=== PATIENT | female | born 1995 | race Caucasian/White ===

== ENCOUNTER → 2023-09-22 15:03 | Outpatient (BNVA) | payer OTHER, SELFPAY | PROVIDERS: PCP Internal Medicine; Visit Provider Orthopaedic Surgery ==

== ENCOUNTER → 2023-11-20 14:08 | Outpatient (BNVA) | payer OTHER, SELFPAY | PROVIDERS: PCP Internal Medicine; Visit Provider Orthopaedic Surgery ==

== ENCOUNTER → 2023-12-05 10:55 | Outpatient (BNVA) | payer OTHER, SELFPAY | PROVIDERS: PCP Internal Medicine; Visit Provider Nurse Practitioner Family ==

== ENCOUNTER → 2023-12-24 09:38 | Outpatient (BNVA) | payer OTHER, SELFPAY | PROVIDERS: PCP Internal Medicine; Visit Provider Student in an Organized Health Care Education/Training Program ==

== ENCOUNTER → 2024-08-24 07:48 | Outpatient (BNVA) | payer OTHER, SELFPAY | PROVIDERS: PCP Internal Medicine; Visit Provider Student in an Organized Health Care Education/Training Program | DX: R53.83 Other fatigue (principal); R76.8 Other specified abnormal immunological findings in serum; E01.0 Iodine-deficiency related diffuse (endemic) goiter | CPT/HCPCS: 99202 ==

== ENCOUNTER → 2024-09-07 11:24 | Outpatient (BNV) | payer OTHER, SELFPAY | PROVIDERS: PCP Internal Medicine; Visit Provider Radiology Diagnostic Radiology | DX: E01.2 Iodine-deficiency related (endemic) goiter, unspecified (principal) | CPT/HCPCS: 76536 ==

== ENCOUNTER 2024-09-27 03:07 | Emergency (ER) | payer OTHER, SELFPAY ==
[2024-09-27 03:26] VITALS: BP 131/84; PULSE 96; RESP 18; TEMP 36.9; O2SAT 96; BMI 25.5
[2024-09-27] MEDS: diphenhydrAMINE HCL 50 MG/ML VIAL IM (03:50)
[2024-09-27] MEDS: Haloperidol Lactate 5 MG/ML VIAL IM (03:50)
--- NOTE | 2024-09-27 03:50 | PC.NURSE ---
patient biba with PD d.t having a domestic argument with siginficant other. patient extremely intoxicated, patient yelling and swearing at staff reporting we are holding her hostage. after multiple attempted to call a sober ride patient was educated on having to stay for safety concerns. Patient continued swearing trying to get out of stretcher to leave, aggressive with staff. patient medicated and physically restrained at this time
--- NOTE | 2024-09-27 03:53 | ED.ALCOHOL ---
HPI - Alcohol General Chief Complaint: ETOH/Substance Use Stated Complaint: ETOH/ domestic Agrument w/ bf, retrained&combative Time Seen by Provider: 09/27/24 03:48 Source: patient and EMS Mode of arrival: EMS Limitations: other ( Intoxicated) History of Present Illness ED Provider: Dr. Stacy Bob HPI narrative: patient comes to the emergency room. According to EMS, the partner of the patient claims because they were having a verbal altercation and the patient was too intoxicated. Police department was not seen, brought the patient to the emergency room. Patient very intoxicated, loud, belligerent, uncooperative, unable to give history. Related Data Home Medications ?Medication ?Instructions ?Recorded ?Confirmed ibuprofen 600 mg tablet 600 mg PO TID 09/03/23 08/24/24 Previous Rx's ?Medication ?Instructions ?Recorded lidocaine 5 % topical patch 1 patch topical DAILY #15 ea 08/08/24 (Lidoderm) Allergies Allergy/AdvReac Type Severity Reaction Status Date / Time doxycycline Allergy Unknown Verified 09/27/24 03:28 Review of Systems Review of Systems: Yes Other [facility] Past Medical History Medical History Thyromegaly Thyroglobulin antibody positive History of substance use Dizziness Headache Right hand pain Vertigo Anxiety Surgical History (Updated 09/21/24 @ 13:44 by Maryanne Gonzáles) H/O wisdom tooth extraction Family History Family History (System 09/21/24 @ 13:44 by Maryanne Gonzáles) Mother No problems noted. Father No problems noted. 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 Intoxicated, screaming , belligerent Eyes: Pupils equal, round and reactive to light. ENT: Pharynx normal. Neck: Normal inspection. Neck supple. No lymph nodes noted. No crepitus CVS: Normal heart rate and rhythm. Pulses normal. Normal S1 and S2 Respiratory: No respiratory distress. Breath sounds normal. No Wheezing. No rales Abdomen: Soft and nontender. No rigidity. No distention. Skin: Skin warm and dry. Normal skin color. Normal skin turgor. Extremities: No lower extremity edema. No Lacerations. No Rash Neuro: Moving all extremities. No slurred speech. CN 2 through 12 grossly intact Psych: intoxicated, uncooperative, belligerent, yelling Course Course Course Narrative: patient's nurse, PD, EMS and our security guards dry deescalating the patient. However, patient kept getting more agitated. Patient tried contacting a friend to pick her up. However, her friend hung up on her patient to admitting under phone calls but not a picked up the phone. Then, patient is becoming more loud, aggressive. Patient had to be physically and chemically restrained. Patient received a dose of IM diphenhydramine, Haldol and lorazepam Medical Decision Making Medical Decision Making MDM Narrative: when patient wakes up, we will assess for SI, HI which she already Denied,but she is intoxicated. Differential Diagnosis Differential Diagnoses: The differential diagnosis associated with the presentation includes ( alcohol intoxication, polysubstance abuse. Anxiety, depression) Admission/Observation Consideration of admission/observation: Escalation of care including admission/observation considered ( patient is under physician observation waiting to become more sober, awake and alert x3 to be discharged) Critical Care Time Critical Care Time Critical Care Time: Yes Total Critical Care Time: 45 Attestation: I have personally provided critical care time. Time includes review of lab data, radiology results, discussion with consultants, and monitoring for potential decompensation. Intervention performed as documented. Discharge Plan Discharge Clinical Impression: Alcohol intoxication Patient Disposition: Still a Patient Prescriptions: No Action lidocaine [Lidoderm] 5 % adhesive patch,medicated 1 patch topical DAILY Qty: 15 0RF Rx Instructions: leave on most painful area for up to 12 hrs ibuprofen 600 mg tablet 600 mg PO TID Print Language: Czech
[2024-09-27] MEDS: LORazepam 2 MG/ML VIAL IM (04:11)
--- NOTE | 2024-09-27 05:45 | PC.NURSE ---
while in the hallway patient coughing up mucus, did not seem to be able to clear airway. patient moved to room 1 suctioned and placed on monitor O2 sats 97% and able to maintain airway
[2024-09-27 06:06] VITALS: BP 114/77; PULSE 97; RESP 19; O2SAT 97
[2024-09-27 10:21] VITALS: BP 117/79; PULSE 72; RESP 16; TEMP 36.7; O2SAT 100
--- NOTE | 2024-09-27 10:21 | PC.NURSE ---
patient awoken from sleep argumentative and wanting to leave and go home. spouse called and attempted to get him to pickup but he is working til noon. Patient mother attempted to be called and voicemail, no message left at this time. patient given own phone back and is calling for ride from sister. patient ambulates with steady gait to bathroom. made aware. d/c pending.
[2024-09-27 11:32] VITALS: BP 117/79; PULSE 72; RESP 16; TEMP 36.7; O2SAT 100
== END 2024-09-27 11:27 | disposition home or self-care (01) ==
PROVIDERS: Emergency Provider Emergency Medicine; PCP Internal Medicine
DX: F10.129 Alcohol abuse with intoxication, unspecified (principal); Y90.9 Presence of alcohol in blood, level not specified; Z79.899 Other long term (current) drug therapy
CPT/HCPCS: 96372; 99284; 99285; J1200; J1630; J2060

== ENCOUNTER 2024-10-05 08:39 | Outpatient (AMB) | payer OTHER, SELFPAY ==
[2024-10-05 08:42] VITALS: BP 112/68; PULSE 93; O2SAT 96; BMI 29.2
--- NOTE | 2024-10-05 08:42 | A.OFFVIS_ITS ---
Vital Signs 10/05/24 08:42 Height 5 ft 1 in Weight 154 lb 5.177 oz BMI 29.2 BP 112/68 Blood Pressure Location Rt brachial Position Sitting Pulse 93 Pulse Source Pulse Oximeter Pulse Oximetry (%) 96 Oxygen Delivery Method Room Air Intake Visit Reasons: Thyroglobulin antibody positive Intake Note: Patient present today for a follow-up on Thyroglobulin Antibody Positive Labs: [facility] [place] [facility] Required: No Accompanied by: Self / Same As Patient Allergies doxycycline Allergy (Verified 10/05/24 08:43) Unknown HPI Comments Details: 28-year-old female here today for follow up of elevated thyroglobulin levels. HPI from prior visit Labs from 07/21/2024 showed normal TSH of 1.12. Thyroglobulin antibody only mildly elevated at 7, TPO antibodies normal at 1. Reports fatigue. Weight gain 30 lbs over a year. Chronic constipation. Reports eczematous patches on skin. No palpitations, does have some anxiety. She does have tremors. LMP: a week and half ago. Periods every month but varies in flow sometimes. Patient currently denies heat or cold intolerance, changes in appearance of eyes or vision changes, tremors, increased diaphoresis or dry skin. ? Patient denies any difficulty swallowing, pain on swallowing or voice changes or difficulty breathing. However she does feel anterior pressure on her neck sometimes when she is lying down. Patient denies any history of childhood neck radiation. Denies having ever used lithium, amiodarone or biotin supplements. Patient denies any family history of thyroid cancer. Grandmother had Graves disease. 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 Gets 8 hours of sleep. Interval history Reports she is feeling much better . no more tiredness 09/07/24: normal thyroid function tests, Us thyroid is normal no nodules Physical exam General: sitting comfortably in no acute distress HEENT: normocephalic/atraumatic, EOM intact, moist oral mucosa Neck: supple, thyroid gland is mildly more prominent Cardiac: normal heart sounds Pulm: normal breath sounds B/L, no added breath sounds Abd: not distended, no tenderness Extremities: no edema, no signs of myxedema, mild tremor noted Laboratory Tests 11/13/23 07/21/24 10:46 16:42 TSH 2.08 1.12 Thyroglobulin Antibody 7 H Thyroid Peroxidase Ab 1 Laboratory Tests 07/21/24 09/07/24 16:42 11:33 TSH 1.12 2.05 Free T4 0.96 Total T3 130 US THYROID 09/07/24 CLINICAL INFORMATION: Iodine deficiency related goiter (endemic). COMPARISON: None available. TECHNIQUE: Linear transducer grayscale and color Doppler examination with attention to the region of the thyroid. FINDINGS: SIZE: Measurements of the thyroid lobes and nodules are given in sagittal, anteroposterior and transverse dimensions respectively. Right Thyroid Lobe: 4.6 x 1.2 x 1.2 cm, volume 3.3 mL. Parenchyma: The gland echotexture is normal. Thyroid vascularity is increased. Left Thyroid Lobe: 4.1 x 0.9 x 1.5 cm, volume 3.0 mL. Parenchyma: The gland echotexture is normal. Thyroid vascularity is increased.. Isthmus: 0.27 cm in maximum AP dimension. Estimated total number of nodules greater than or equal to 1 cm: 0/none. Penology Professor nodules are described as follows: NODES: No lymphadenopathy is seen in the tissue surrounding the thyroid gland. US/US thyroid IMPRESSION: ACR TI-RADS 0 PFSH Medical History Thyromegaly Thyroglobulin antibody positive History of substance use Dizziness Headache Right hand pain Vertigo Anxiety Surgical History H/O wisdom tooth extraction Family History Mother No problems noted. Father No problems noted. 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 Cognitive needs: No Hearing needs: No Vision needs: Yes Physical Exam Vital Signs: Last Vital Signs Pulse 93 10/05/24 08:42 BP 112/68 10/05/24 08:42 Pulse Ox 96 10/05/24 08:42 Oxygen Delivery Method Room Air 10/05/24 08:42 BMI result Body Mass Index 29.2 Assessment & Plan Assessment & Plan (1) Thyroglobulin antibody positive: Code(s): R76.8 - Other specified abnormal immunological findings in serum Category: Medical Plan: 28-year-old female with no family history of thyroid cancer with no personal history of head or neck radiation who is here today for for follow up for positive thyroglobulin antibody with normal thyroid function from July 2024. Labs from September 2024 showed normal thyroid function tests as well as normal t hyroid ultrasound. She does not have any nodules. At this point she does not need any follow up with endocrine. She is overall feeling much better and her nonspecific symptoms of fatigue have also resolved. She can be discharged back to her primary care physician. Plan See above Coding Level of Care Code Est Pt Level 3 (79669) Diagnoses Thyroglobulin antibody positive R76.8
== END 2024-10-05 08:57 | disposition home or self-care (01) ==
LOC: HO.ENCR 08:40
PROVIDERS: PCP Internal Medicine; Visit Provider Student in an Organized Health Care Education/Training Program
DX: R76.8 Other specified abnormal immunological findings in serum (principal)
CPT/HCPCS: 99213

== ENCOUNTER → 2024-10-05 08:39 | Outpatient (BNVA) | payer OTHER, SELFPAY | PROVIDERS: PCP Internal Medicine; Visit Provider Student in an Organized Health Care Education/Training Program | DX: R76.8 Other specified abnormal immunological findings in serum (principal) | CPT/HCPCS: 99212 ==

== ENCOUNTER 2024-12-31 05:57 | Emergency (ER) | payer OTHER, SELFPAY ==
--- NOTE | 2024-12-31 06:08 | ED_ITS ---
HPI - Alcohol General Chief Complaint: ETOH/Substance Use Stated Complaint: ETOH Time Seen by Provider: 12/31/24 06:02 Source: patient Mode of arrival: ambulatory Limitations: no limitations History of Present Illness ED Provider: Dr. Stacy Bob HPI narrative: Patient comes to the emergency room accompanied by [place] fire department and police department. Seems that patient drank a large amount of alcohol and then got into an argument with her significant other. Seems that they were in a car, patient's partner how to puller out because the discussion was escalating. When PD arrived, patient was very belligerent and therefore she was brought to emergency room. Patient denies SI or HI. Related Data Home Medications ?Medication ?Instructions ?Recorded ?Confirmed ibuprofen 600 mg tablet 600 mg PO TID PRN 10/05/24 lidocaine 5 % topical patch 1 patch topical DAILY PRN 10/05/24 (Lidoderm) Allergies Allergy/AdvReac Type Severity Reaction Status Date / Time doxycycline Allergy Unknown Verified 12/31/24 06:13 Review of Systems Review of Systems: Constitutional : No Weight loss, No Fever, No Chills, No Night Sweats, No Fatigue, No Malaise ENT/Mouth : No Hearing loss, No Ear Pain, No Nasal Congestion, No Sinus Pain, No Hoarseness, No sore throat, No Rhinorrhea, No Swallowing Difficulty Eyes: No Eye Pain, No Swelling, No Redness, No Foreign Body, No Discharge, No Vision Changes Cardiovascular : No Chest Pain, No SOB, No Dyspnea on Exertion, No Orthopnea, No Edema, No Palpitations Respiratory : No Cough, No Sputum, No Wheezing, No Smoke Exposure, No Dyspnea Gastrointestinal : No Nausea, No Vomiting, No Diarrhea, No Constipation, No abdominal Pain, No Hematochezia, No Melena Genitourinary : no irregular bleeding, No Dysuria, No Urinary Frequency, No Hematuria, No Urinary Incontinence, No Urgency, No Flank Pain, No Urinary Flow Changes, No Hesitancy Musculoskeletal : No joint pain, No Myalgias, No Joint Swelling Skin : No Skin Lesions, No rash Neuro : No Weakness, No Numbness, No Paresthesias, No Loss of Consciousness, No Dizziness, No Headache Psych : No Anxiety/Panic, No Depression, No SI/HI/AH/VH, admits to alcohol intoxication Heme/Lymph: No Bruising, No Bleeding,No Lymphadenopathy Endocrine : No Polyuria, No Polydipsia, No Temperature Intolerance [facility] Past Medical History Medical History Thyromegaly Thyroglobulin antibody positive History of substance use Dizziness Headache Right hand pain Vertigo Anxiety Surgical History H/O wisdom tooth extraction Family History Family History Mother No problems noted. Father No problems noted. 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 Oriented X3. Patient is intoxicated but redirectable Eyes: Pupils equal, round and reactive to light. ENT: Pharynx normal. Neck: Normal inspection. Neck supple. No lymph nodes noted. No crepitus CVS: Normal heart rate and rhythm. Pulses normal. Normal S1 and S2 Respiratory: No respiratory distress. Breath sounds normal. No Wheezing. No rales Abdomen: Soft and nontender. No rigidity. No distention. Skin: Skin warm and dry. Normal skin color. Normal skin turgor. Extremities: No lower extremity edema. No Lacerations. No Rash Neuro: Oriented X 3. No motor deficit. No sensory deficit. Moving all extremities. No slurred speech. CN 2 through 12 grossly intact Psych: calm, cooperative, intoxicated Course Course Course Narrative: Patient was brought to emergency room because she was belligerent and intoxicated. Patient denies SI or HI. Denies any injuries or any falls. Reevaluation(s) Reevaluation #1: Time: 08:08 Date: 12/31/24 Provider: Michael Douglas MD Physician observation ended at 0800. The patient is a 29-year-old female who had presented to the emergency room after calling 911. She had apparently been in a car with someone else. She was intoxicated and became argumentative with the electric truck driver of the car. She was asked to leave the car. After leaving the car she called 911 and was brought to the hospital. Here the patient says that she was feeling upset but not suicidal. She describes herself as someone who has been clean from heroin for 6 years but still occasionally drinks alcohol. She has a boyfriend. She has 2 small children. She says that she lives with her boyfriend and the 2 small children at a house in [place]. She works at [employer]. she says that occasionally she drinks a lot when she is feeling under stress but she does not consider herself an alcoholic. She does not want to speak to the recovery team. She simply wants to be discharged. Clinically the patient was awake and alert but seemed intoxicated. She did not seem in acute distress. She was held in the emergency room until her boyfriend came and picked her up. She was then discharged. She did not wish to have any testing done or any other services provided.. Medical Decision Making Medical Decision Making MDM Narrative: Patient is waiting for a sober ride to pick her up. Patient denies any falls or injuries. At this time, imaging is not indicated. When the patient becomes sober or she has a sober ride to pick her up, patient may be discharged. I was informed by registration that the patient is refusing to give any information because she does not want us to bill her insurance Differential Diagnosis Differential Diagnoses: The differential diagnosis associated with the presentation includes (Alcohol intoxication, polysubstance abuse) Discharge Plan Discharge Clinical Impression: Alcohol intoxication Patient Disposition: Home, Self-Care Instructions: Alcohol Intoxication (ED) Additional Instructions: Please follow-up with your primary care physician tomorrow. If you have any worsening or new symptoms, please return to the emergency room or call 911 Prescriptions: No Action ibuprofen 600 mg tablet 600 mg PO TID PRN lidocaine [Lidoderm] 5 % adhesive patch,medicated 1 patch topical DAILY PRN Rx Instructions: leave on most painful area for up to 12 hrs Referrals: Aby Serrano MD [Primary Care Provider, Internal Medicine] Print Language: Yakut
[2024-12-31 06:13] VITALS: BP 119/72; PULSE 120; PULSE 99; RESP 19; TEMP 36.8; O2SAT 98; BMI 27.4
--- NOTE | 2024-12-31 07:09 | PC.NURSE ---
assumed care of patient at 0645, patient belligerent, attempting to elope from unit, appears intoxicated. patient not changed over by previous shift RN. security at bedside. patient informed if she has ride home then she can leave. patient continues to scream this RN is a cunt for not bringing patient a water. This RN provided patient with water. This RN spoke with patients ride home Vince. written by Aditi SAENZ
--- NOTE | 2024-12-31 07:09 | PC.NURSE ---
assumed care of patient at 0645, patient beligerant, attempting to elope from unit, appears intoxicated. patient not changed over by previous shift RN. security at bedside. patient informed if she has ride home then she can leave. patient continues to scream this RN is a cunt for not bringing patient a water. This RN provided patient with water. This RN spoke with patients ride home
--- NOTE | 2024-12-31 07:24 | PC.NURSE ---
patient brought pitcher of water, dumped it out. requested ED provider to do blood work for her BAL level, ED provider ordered then patient refused.
--- NOTE | 2024-12-31 08:05 | PC.NURSE ---
Dr davis at bedside, patient ride om his way
--- NOTE | 2024-12-31 08:06 | PC.NURSE ---
patient sober jey Clarke picked patient up, given dc papers
== END 2024-12-31 08:09 | disposition home or self-care (01) ==
PROVIDERS: Emergency Provider Emergency Medicine; PCP Internal Medicine
DX: F10.920 Alcohol use, unspecified with intoxication, uncomplicated (principal); Y90.9 Presence of alcohol in blood, level not specified; R45.1 Restlessness and agitation
CPT/HCPCS: 99284

== ENCOUNTER 2025-01-06 03:14 | Emergency (ER) | payer OTHER, SELFPAY ==
--- NOTE | 2025-01-06 03:53 | ED_ITS ---
HPI - Alcohol General Stated Complaint: SI statements ETOH section 12 Time Seen by Provider: 01/06/25 03:53 Source: patient and EMS Mode of arrival: EMS Limitations: other (upset and intoxicated) History of Present Illness ED Provider: KATHERYN OHARA narrative: 29 yo female with PMH of ETOH use with visits to the ED for agitation, opiate use here with c/o calling state transit police officer making statements on the recorded line I don't want to be here anymore she was sectioned 12 by PD and recants and states she never said any of that. The section 12 just states self harm. When talking to the patient she admits to drinking denies SI no prior attempts has a therapist and prescriber. The patient states she called to report a drug dealer in her neighborhood and didn't feel the police were helping so she made an off hand comment I shouldn't be here anymore if you're not going to help. Her step mom is here and is an tax attorney she has already called the police - the family has no concerns for SI but they are concerned for her ETOH use and are going to work out a plan to get her some help. The patient and step mom contract for safety and the step mom is going to take her home. The patient is future oriented and states this was all blown out of proportion. Last drink: Hours (ago) Chronic alcohol use: Yes Previous visits for alcohol intoxication: Yes Recent trauma: No Associated symptoms: denies other symptoms Treatments prior to arrival: none Related Data Home Medications ?Medication ?Instructions ?Recorded ?Confirmed ibuprofen 600 mg tablet 600 mg PO TID PRN 10/05/24 lidocaine 5 % topical patch 1 patch topical DAILY PRN 10/05/24 (Lidoderm) Allergies Allergy/AdvReac Type Severity Reaction Status Date / Time doxycycline Allergy Unknown Verified 01/06/25 04:02 Review of Systems Review of Systems: Constitutional : No Fever, No Chills ENT/Mouth : No Ear Pain, No Nasal Congestion, No sore throat Eyes: No Eye Pain, No Swelling, No Redness Cardiovascular : No Chest Pain, No SOB Respiratory : No Cough, No Sputum, No Dyspnea Gastrointestinal : No Nausea, No Vomiting, No Diarrhea, No Hematochezia, No Melena Genitourinary : No Dysuria, No Urinary Frequency, No Hematuria Musculoskeletal : No Myalgias Skin : No Skin Lesions, No rash Neuro : No Weakness, No Numbness, No Paresthesias, No Dizziness, No Headache Psych : no Anxiety, no Depression, no SI/HI All other systems reviewed and are negative [facility] Past Medical History Attestation statement: The following information was validated with the patient. Source: old records reviewed Medical History Thyromegaly Thyroglobulin antibody positive History of substance use Dizziness Headache Right hand pain Vertigo Anxiety Surgical History H/O wisdom tooth extraction Family History Family History Mother No problems noted. Father No problems noted. 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 Oriented X3. No acute distress. appears slightly intoxicated but no ataxia and she is oriented, initially upset but calmed down after police left. Eyes: Pupils equal, round and reactive to light. ENT: Pharynx normal. Neck: Normal inspection. Neck supple. CVS: Pulses normal. Respiratory: No respiratory distress. Abdomen: atraumatic Skin: Skin warm and dry. Normal skin color. Extremities: No lower extremity edema. Neuro: Oriented X 3. No motor deficit. No sensory deficit. CN2-12 intact Medical Decision Making Medical Decision Making MDM Narrative: 29 yo female with PMH of ETOH use with visits to the ED for agitation, opiate use here with c/o making statements to state police after drinking and feeling f rustrated about she shouldn't even be here if they aren't going to help. She states she is no SI she has future plans and would not hurt herself due to her children. She has no prior SI attempts per her and family. Family is here and they want to take her home. Step mom is an tax attorney and states she feels safe taking her home and Dot will stay with her. Differential Diagnosis Differential Diagnoses: The differential diagnosis associated with the presentation includes ETOH use disorder, PTSD Admission/Observation Consideration of admission/observation: Escalation of care including admission/observation considered I do not think patient has SI and family is here without any concerns and states this is ETOH related - patient is going to stay with her step mom and if there are any changes or concerns she contracts for safety and both agree to call 911. Independent Historian Clinical information obtained from an independent historian. History obtained from or confirmed by: EMS and Other (step mom) External Record Review External record reviewed: Outpatient record Discharge Plan Discharge Clinical Impression: Alcohol intoxication Qualifiers: Complication of substance-induced condition: uncomplicated Qualified Code(s): F10.920 - Alcohol use, unspecified with intoxication, uncomplicated Patient Disposition: Home, Self-Care Instructions: Alcohol Intoxication (ED) Additional Instructions: Alcohol use disorder You were seen in the Emergency Department today for treatment of alcohol use disorder.? You may have been given medications to help with your withdrawal symptoms.? Please do not drink alcohol with them. This is very dangerous and can cause respiratory depression or other adverse reactions depending on the medication. If you would like to cut down or stop your alcohol use please consider calling our outpatient Addiction Treatment office:? [facility] (M-F [id number]) [address] [place] [address] ? You have also been given a list of treatment providers in the area that can assist as well.? If you experience seizures, vomiting blood, black stools, falls, severe headache, chest pain, fevers, trouble breathing, hallucinations or any other concerns you need to call 911 or seek immediate care. Please stay hydrated. Prescriptions: No Action ibuprofen 600 mg tablet 600 mg PO TID PRN lidocaine [Lidoderm] 5 % adhesive patch,medicated 1 patch topical DAILY PRN Rx Instructions: leave on most painful area for up to 12 hrs Stand Alone Forms: Work/School Release Print Language: Congolese
[2025-01-06 03:59] VITALS: PULSE 134; O2SAT 99; BMI 25.7
[2025-01-06 04:20] VITALS: BP 115/78; PULSE 104; RESP 20; TEMP 36.8; O2SAT 96
--- NOTE | 2025-01-06 04:20 | PC.NURSE ---
pts step mom La here sating pt does not have any history of self harm, regularly sees psychiatrist. states someone will be with patient and can call 911 at any moment of concern for suicidal intent. step mom is willing to take pt home and spoke with MD Park and verbalizes understanding d/c education.
[2025-01-06 04:30] VITALS: BP 115/78; PULSE 104; RESP 20; TEMP 36.8; O2SAT 96
== END 2025-01-06 04:23 | disposition home or self-care (01) ==
LOC: HO.ED 04:30
PROVIDERS: Emergency Provider Emergency Medicine
DX: F10.920 Alcohol use, unspecified with intoxication, uncomplicated (principal); R45.851 Suicidal ideations; Z79.899 Other long term (current) drug therapy
CPT/HCPCS: 99283

== ENCOUNTER 2025-02-11 12:06 | Outpatient (AMB) | payer OTHER, SELFPAY ==
--- OUTSIDE RECORDS SUMMARY | 2025-02-11 12:07 | XMS_ITS ---
Author Name [facility] Organization Unknown Care Team Organization Name Specialty Phone Email Start Date End Da te [facility] Mariana Faulkner [facility] 03/13/2023 024 [facility] Rafi Lyons Primary [facility] 05/14/20222023
[2025-02-11 12:42] VITALS: BP 100/76; PULSE 92; TEMP 37.1; O2SAT 97; BMI 27.3
--- NOTE | 2025-02-11 12:42 | MHC.OFFWIV ---
Intake Vital Signs 02/11/25 12:42 Height 5 ft 4 in Weight 159 lb 4 oz BMI 27.3 BP 100/76 Blood Pressure Location Lt brachial Position Sitting Pulse 92 Pulse Source Pulse Oximeter Temp 98.7 F Temp Source Oral Pulse Oximetry (%) 97 Oxygen Delivery Method Room Air Intake Visit Reasons: EP Diarrhea for 3 days, stomach bug Patient Tobacco Use Status: Never used Tobacco Operations Research Manager Required: No Is last menstrual period known: Yes Last menstrual period: 02/02/25 Post menopausal: No Patient : No Allergies doxycycline Allergy (Verified 02/11/25 12:48) Unknown Do you need a note to return to daycare/school/sports/work: Yes HPI EP Diarrhea for 3 days, stomach bug HPI Details This is a 29-year-old female patient presents to the walk-in clinic today with a 3 day history of a GI illness. She states that 3 days ago, she developed vomiting which subsided after about 1 day. She then began having diarrhea which was frequent yesterday, however today she has only had one episode. She denies any abdominal pain, fever, or urinary complaints. Denies any dizziness. Has been tolerating some bland foods and water. Reports her daughter had a similar illness earlier this week and is recovered. 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 [facility] Medical History Thyromegaly Thyroglobulin antibody positive History of substance use Dizziness Headache Right hand pain Vertigo Anxiety Surgical History H/O wisdom tooth extraction Family History Mother No problems noted. Father No problems noted. 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 Cognitive needs: No Hearing needs: No Vision needs: Yes Female Reproductive History Menstrual Date of last menstrual period: 02/02/25 Review of Systems Const All systems reviewed & are unremarkable except as noted in HPI and below Physical Exam Vital Signs: Last Vital Signs Temp 98.7 F 02/11/25 12:42 Pulse 92 02/11/25 12:42 BP 100/76 02/11/25 12:42 Pulse Ox 97 02/11/25 12:42 Oxygen Delivery Method Room Air 02/11/25 12:42 BMI result Body Mass Index 27.3 Const General: cooperative, healthy appearing and no acute distress HEENT Head: Yes normal to inspection Resp Effort & Inspection: normal respiratory effort Auscultation: clear to auscultation bilaterally Cardio Rate: regular rate Rhythm: regular rhythm GI Other: soft, nontender Skin General skin exam: no rashes or lesions noted Extrem General: Yes capillary refill normal and Yes no clubbing, cyanosis or edema Psych Appearance: grossly normal Mental Status: mental status grossly normal Speech and movement: Normal speech and movement present Assessment & Plan Assessment & Plan (1) Viral gastroenteritis: Code(s): A08.4 - Viral intestinal infection, unspecified Plan: Patient seems to be recovering from a viral enteritis. She has had one episode of diarrhea today. No further vomiting. We discussed starting to eat bland foods and advancing diet as tolerated. Encouraged adequate hydration and rest. I provided her with a work note and we discussed returning to the clinic if she does not continue to improve with time and conservative measures. She verbalizes understanding and agrees to plan. Coding Level of Care Code Est Pt Level 4 (68985) Diagnoses Viral gastroenteritis A08.4
== END 2025-02-11 13:19 | disposition home or self-care (01) ==
PROVIDERS: Visit Provider Nurse Practitioner Family
DX: A08.4 Viral intestinal infection, unspecified (principal)

== ENCOUNTER → 2025-02-11 12:06 | Outpatient (BNVA) | payer OTHER, SELFPAY | DX: A08.4 Viral intestinal infection, unspecified (principal); R19.7 Diarrhea, unspecified | CPT/HCPCS: 99212 ==

== ENCOUNTER 2025-04-07 09:53 | Outpatient (AMB) | payer OTHER, SELFPAY ==
[2025-04-07 09:56] VITALS: BP 112/80; PULSE 86; RESP 18; TEMP 36.2; O2SAT 98; BMI 28.2
--- NOTE | 2025-04-07 09:56 | MHC.PC.OV ---
Vital Signs 04/07/25 09:56 Height 5 ft 4 in Weight 164 lb 2 oz BMI 28.2 BP 112/80 Blood Pressure Location Lt brachial Position Sitting Respiration 18 Pulse 86 Pulse Source Pulse Oximeter Temp 97.1 F Temp Source Temporal Artery Scan Pulse Oximetry (%) 98 Oxygen Delivery Method Room Air Intake Visit Reasons: Nausea,Vomitting,body aches Biomass Plant Technician Required: No Accompanied by: Self / Same As Patient Allergies doxycycline Allergy (Verified 04/07/25 09:57) Unknown Medication List - Last Reconciled 04/07/25 by Rigo Teixeira MD hydroxyzine pamoate 25 mg PO BID PRN sertraline 100 mg PO DAILY Tobacco use date assessed: 04/07/25 Dental Screening Dental Screen Date: 04/07/25 Did you have a dental visit in the last 12 months?: No Did you have a dental problem in the last 6 months where you did not have access to dental care?: No Was dental information given to patient?: No HPI HPI Comments History of Present Illness Details The patient is a 29-year-old female presenting with nausea, vomiting, diarrhea, and abdominal pain. Symptoms began on Friday with severe nausea and vomiting, which have improved, though nausea remains. She describes abdominal pain with bubbling sensations, diarrhea, and headache. The patient had a fever that responded to Tylenol, but body aches persisted. She has not taken medication for nausea or diarrhea, only Tylenol for fever and headache. The patient has a history of prolonged QT interval, identified on an EKG in July, with a QT interval of approximately 600 ms. She understands that certain medications could worsen this condition, posing cardiac risks. [facility] Medical History Thyromegaly Thyroglobulin antibody positive History of substance use Dizziness Headache Right hand pain Vertigo Anxiety Surgical History H/O wisdom tooth extraction Family History Mother No problems noted. Father No problems noted. 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 Hever Sommers, Nancy Carranza, Tesfaye Johnson and colleagues, with an educational katerin from [employer]. Review of Systems Const Details: Positives besides what was mentioned in HPI are in BOLD Constitutional: No Weight Change, No Fever, No Chills, No Night Sweats, No Fatigue, No Malaise ENT/Mouth: No Hearing Changes, No Ear Pain, No Nasal Congestion, No Sinus Pain, No Hoarseness, No sore throat, No Rhinorrhea, No Swallowing Difficulty Eyes: No Eye Pain, No Swelling, No Redness, No Foreign Body, No Discharge, No Vision Changes Cardiovascular: No Chest Pain, No SOB, No PND, No Dyspnea on Exertion, No Orthopnea, No Claudication, No Edema, No Palpitations Respiratory: No Cough, No Sputum, No Wheezing, No Smoke Exposure, No Dyspnea Gastrointestinal: No Nausea, No Vomiting, No Diarrhea, No Constipation, No Pain, No Heartburn, No Anorexia, No Dysphagia, No Hematochezia, No Melena, No Flatulence, No Jaundice Genitourinary: No Dysmenorrhea, No DUB, No Dyspareunia, No Dysuria, No Urinary Frequency, No Hematuria, No Urinary Incontinence, No Urgency, No Flank Pain, No Urinary Flow Changes, No Hesitancy Musculoskeletal: No Arthralgias, No Myalgias, No Joint Swelling, No Joint Stiffness, No Back Pain, No Neck Pain, No Injury History Skin: No Skin Lesions, No Pruritis, No Hair Changes, No Breast/Skin Changes, No Nipple Discharge Neuro: No Weakness, No Numbness, No Paresthesias, No Loss of Consciousness, No Syncope, No Dizziness, No Headache, No Coordination Changes, No Recent Falls Psych: No Anxiety/Panic, No Depression, No Insomnia, No Personality Changes, No Delusions, No Rumination, No SI/HI/AH/VH, No Social Issues, No Memory Changes, No Violence/Abuse Hx., No Eating Concerns Heme/Lymph: No Bruising, No Bleeding, No Transfusions History, No Lymphadenopathy Endocrine: No Polyuria, No Polydipsia, No Temperature Intolerance Physical exam (Primary Care) Vital Signs: Last Vital Signs Temp 97.1 F 04/07/25 09:56 Pulse 86 04/07/25 09:56 Resp 18 04/07/25 09:56 BP 112/80 04/07/25 09:56 Pulse Ox 98 04/07/25 09:56 Oxygen Delivery Method Room Air 04/07/25 09:56 BMI result Body Mass Index 28.2 Tobacco/Smoking Status: Tobacco use Status Tobacco use date assessed 04/07/25 04/07/25 10:05 Patient Tobacco Use Status Never used Tobacco 04/07/25 10:05 e-Cigarette/Vaping Use Currently Using 04/07/25 10:05 Thrive Assessment: Date of Thrive Assessment Date Thrive assessed 07/23/23 04/07/25 10:05 Const Other: Pertinent findings are in BOLD GENERAL APPEARANCE NAD, activity normal for age, well developed/ well nourished, no cyanosis, pallor, or diaphoresis. EYES lids/conjunctiva normal. EARS/NOSE/THROAT Mucous membranes moist, nares normal, lips/teeth normal uvula midline without oral pharyngeal erythema, exudate or swelling TMs normal bilaterally. No lymphangitis/lymphedema. HEAD/NECK normocephalic atraumatic, no facial trauma, neck is supple. RESPIRATORY respiratory effort normal, speaks in full sentences, no tripod position, no accessory muscle use. Lungs clear to auscultation without rhonchi, wheezes, rales CARDIAC Regular rate and rhythm, no edema. ABDOMINAL Soft, ND/NT. No evidence of fluid wave. No pulsatile masses on exam, rebound tenderness, Silveira sign or pain over Mcburney's point. MUSCLES/EXTREMITIES No abnormal range of motion, no swelling. SKIN Warm, pink and dry. No rashes, dermatoses, petechiae or lesions. NEUROLOGICAL Speech is clear and appropriate. Normal level of consciousness. Gait and coordination are normal. 5/5 strength in all extremities. PSYCH Normal mood and affect. Judgement/competence is appropriate Coding Level of Care Code Est Pt Level 4 (41571) Diagnoses Nausea R11.0 Diarrhea R19.7 QT prolongation R94.31 Assessment & Plan Assessment & Plan (1) Nausea: Code(s): R11.0 - Nausea Category: Medical Plan: - Supportive care with hydration using Pedialyte and rest advised. No medications prescribed as patient have Hx of prolonged QT. (2) Diarrhea: Code(s): R19.7 - Diarrhea, unspecified Category: Medical Plan: - Supportive care with hydration using Pedialyte and rest advised. (3) QT prolongation: Code(s): R94.31 - Abnormal electrocardiogram [ECG] [EKG] Category: Medical Plan: - Avoid QT prolonging medications. Had QTc in the 600s on EKG from July/2024. - Advised patient to let her providers know about prolonged QTc. Plan During the visit, I discussed the patient's symptoms of nausea, vomiting, diarrhea, and abdominal pain, which are consistent with viral gastroenteritis. I advised supportive care, including hydration and rest, and explained the importance of avoiding medications that could exacerbate her prolonged QT interval. We reviewed the potential cardiac risks associated with QT prolongation and the need for careful medication management.
--- OUTSIDE RECORDS SUMMARY | 2025-04-07 11:01 | XMS_ITS | Clinical Summary ---
Author Organization [facility] Address [address] [place] [address] Phone Care Team Providers Care Rehabilitation Services Coordinator Name Role Phone Jasbir Darnell MD Primary Care Provider [phone] Allergies No known active allergies Medications No known medications Social History Tobacco Use Types Packs/Day Years Used Date Smoking Tobacco: Never Assessed Education Answer Date Recorded Are you interested in more education? Not on howard e 11/02/2022 Are you concerned about learning? Not on file 11/02/2022 No 11/02/2022 No 11/02/2022 Digital Access Answer Date Recorded No 12/03/2022 No 12/03/2022 Reliable internet access at home? Not on file 12/03/2022 Device with a working camera? Not on file Comments Unknown Sex and Gender Information Value Date Recorded Sex Assigned at Not on file Legal Sex Female 2:35 PM EDT Gender Identity Not on file Sexual Orientation Not on file Last Filed Vital Signs Vital Sign Reading Time Taken Comments Blood Pressure 124/79 03/11/2022 3:30 PM EDT Pulse 69 03/11/2022 3:30 PM EDT Temperature 36.8 C (98.3 F) 03/11/2022 3:30 PM EDT Respiratory Rate 18 03/11/2022 3:30 PM EDT Oxygen Saturation 100% 03/11/2022 3:30 PM EDT Inhaled Oxygen Concentration - - Weight 56.7 kg (125 lb) 03/11/2022 3:30 PM EDT Height 157.5 cm (5' 2 ) 03/11/2022 3:30 PM EDT Body Mass Index 22.86 03/11/2022 3:30 PM EDT Plan of Treatment Not on file Medical Devices Not on file Insurance [facility] Penemarie [employer] ALLANCE ACO [facility] [employer] ALLANCE ACO [employer] ALLANCE ACO [facility] A[facility] [employer] [facility] [employer] Care Teams Rehabilitation Services Coordinator Relationship Specialty Start Date End Date Jasbir Darnell MD [address] [place] [address] [place] [id number] PCP - General Internal Medicine 03/11/22 Additional Source Comments The information contained in this document represents components of the legal health record. It is not the complete legal health record.[facility]
--- OUTSIDE RECORDS SUMMARY | 2025-04-07 11:01 | XMS_ITS | Patient Health Record ---
Author Organization [facility] Address [address] [place] [address] Reason For Referral No Information Plan Of Treatment No Information Insurance Providers Payer Name Payer Address Payer Phone Subscriber Number Group Number Insured Name Patient Relationship to Insured Coverage Start Date Coverage End Date [facility] [address] [place] [address] [id number] 1 Dot Frank Self - patient is the insured
== END 2025-04-07 10:26 | disposition home or self-care (01) ==
LOC: HO.HMCH 09:53
PROVIDERS: Visit Provider Internal Medicine
DX: R11.0 Nausea (principal); R19.7 Diarrhea, unspecified; R94.31 Abnormal electrocardiogram [ECG] [EKG]

== ENCOUNTER → 2025-04-07 09:53 | Outpatient (BNVA) | payer OTHER, SELFPAY | PROVIDERS: Visit Provider Internal Medicine | DX: R11.0 Nausea (principal); R19.7 Diarrhea, unspecified; R94.31 Abnormal electrocardiogram [ECG] [EKG] | CPT/HCPCS: 99212 ==

== ENCOUNTER 2025-04-14 05:29 | Emergency (ER) | payer OTHER, SELFPAY ==
--- NOTE | 2025-04-14 | ECG_ITS ---
Test Reason : CP Blood Pressure : */* mmHG Vent. Rate : 103 BPM Atrial Rate : 103 BPM P-R Int : 128 ms QRS Dur : 92 ms QT Int : 376 ms P-R-T Axes : 76 28 24 degrees QTcB Int : 492 ms Sinus tachycardia Nonspecific T wave abnormality Abnormal ECG No previous ECGs available Referred By: Generic ED Physician Electronically Signed By: JERRELL BALDERRAMA MD
[2025-04-14 05:33] VITALS: BP 115/66; PULSE 99; O2SAT 97; BMI 30.5
[2025-04-14 05:39] VITALS: BP 121/72; PULSE 103; RESP 26; TEMP 36.6; O2SAT 98
--- NOTE | 2025-04-14 06:06 | ED.CHESTPAIN ---
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 She also reported history of QT prolongation. Related Data Home Medications ?Medication ?Instructions ?Recorded ?Confirmed hydroxyzine pamoate 25 mg capsule 25 mg PO BID PRN insomnia 02/11/25 04/07/25 sertraline 100 mg tablet 100 mg PO DAILY 04/07/25 04/07/25 Allergies Allergy/AdvReac Type Severity Reaction Status Date / Time doxycycline Allergy Unknown Verified 04/14/25 05:38 Review of Systems Constitutional: Constitutional: Reports as per HPI [facility] Past Medical History Medical History Thyromegaly Thyroglobulin antibody positive History of substance use Dizziness Headache Right hand pain Vertigo Anxiety Surgical History H/O wisdom tooth extraction Family History Family History Mother No problems noted. Father No problems noted. 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 ?CV: RRR, no obvious murmurs appreciated ? ?Resp: ?No wheezing rales rhonchi no stridor moving air well ? Abd: ?Bowel sounds are present, no tenderness no rebound no rigidity ? ?MSK: FROM, strength 5/5 all extremities ? Skin: Warm, dry, intact, ? ?Neuro: ?Alert and oriented x3 but clearly intoxicated, moving upper and lower extremities symmetrically, no obvious facial asymmetry noted, cranial nerves 2-12 intact Psych: No SI or HI Medications Administered Discontinued Medications Generic Name Dose Route Start Last Admin Trade Name Freq PRN Reason Stop Dose Admin Diazepam 2.5 mg 04/14/25 06:40 04/14/25 08:55 Diazepam 10 Mg/2 Ml Cartridge IVPUSH 04/14/25 06:41 Not Given STAT STA Medical Decision Making Medical Decision Making [facility] Narrative: 6:44 AM 04/14/2025 (Dr. Chad Shankar): Patient had 1 ECG that showed QTC 605, QTC today's for 92, her prior EKG was done in August and not sure whether this was poorly execute study or misplaced leads etc. with that said she does have history of alcohol use she has had prior visits to the ER with alcohol intoxication and she is intoxicated at this time, history of anxiety denies SI or HI, she has friend on boyfriend at bedside who confirmed that she was drinking today on her symptoms of anxiety were present before she was drinking, we will initiate medical workup, may provide gentle Valium for relaxation and then monitoring until she is clinically sober for re-evaluation. Did not feel further imaging or blood work for PE workup is indicated at this time she has had no physical exam for evidence of DVT or PE risk factors such as being on control pills. Differential Diagnosis Differential Diagnoses: The differential diagnosis associated with the presentation includes (Anxiety, dehydration, thyrotoxicosis, PE, electrolyte derangements) Admission/Observation Consideration of admission/observation: Escalation of care including admission/observation considered Lab Data [facility] Lab Attestation statement: I reviewed the patient's lab results. 04/14/25 06:37 04/14/25 06:37 Labs: Lab Results 04/14/25 Range/Units 06:37 WBC 11.4 H (4.8-10.8) X10*3/uL RBC 4.92 (4.20-5.50) X10*6/uL Hgb 13.2 (12.0-16.0) g/dl Hct 40.4 (37.0-47.0) % MCV 82.1 (80.0-98.0) fL MCH 26.8 L (27.0-33.0) pg MCHC 32.7 (31.0-35.0) g/dl RDW 13.7 (11.0-16.0) % Plt Count 353 (160-400) X10*3/uL MPV 10.2 (9.4-12.3) fL Immature Gran % (Auto) 0.4 (0.0-0.4) % Neut % (Auto) 55.9 (45-73) % Lymph % (Auto) 34.5 (20-40) % [place] % (Auto) 4.7 (2-11) % Eos % (Auto) 3.7 (0-4) % Baso % (Auto) 0.8 (0-2) % Lymph # (Auto) 3.9 (1.2-4.9) X10*3/uL [place] # (Auto) 0.5 (0.1-1.2) X10*3/uL Eos # (Auto) 0.4 (0.0-0.4) X10*3/uL Baso # (Auto) 0.1 (0.0-0.2) X10*3/uL Abs Immat Gran (auto) 0.04 H (0.00-0.03) X10*3/uL Absolute Neuts (auto) 6.4 (2.0-8.3) x10*3/uL Absolute Nucleated RBC 0.000 (0.0-0.012) X10*3/uL Nucleated RBC % (auto) 0.0 (0.0-0.2) /100WBC Sodium 146 H (135-145) mmol/L Potassium 3.9 (3.3-5.1) mmol/L Chloride 107 (96-108) mmol/L Carbon Dioxide 30 H (22-29) mmol/L Anion Gap 13 (12-20) BUN 7 L (9-16) mg/dL Creatinine 0.65 (0.5-1.4) mg/dL Estim Creat Clear Calc 123.7 Estimated GFR > 60 Random Glucose 119 H (60-115) mg/dL Calcium 9.5 (8.4-10.2) mg/dL Total Bilirubin 0.2 (0.0-1.0) mg/dL AST 36 H (5-31) U/L ALT 37 H (0-31) U/L Alkaline Phosphatase 95 (39-117) U/L Total Protein 8.6 H (6.5-8.0) g/dL Albumin 5.2 H (3.5-5.0) g/dL TSH 2.04 (0.32-4.0) uIU/mL Beta HCG, Quant < 2 mIU/mL Ethyl Alcohol 286 mg/dL Independent Interpretation I performed an independent interpretation of an: EKG (103 beats per minute, otherwise normal ECG without dysrhythmia, AV ryley blocks or ST-T changes to suspect underlying ACS, my independent interpretation, QTC is 492) Independent Historian Clinical information obtained from an independent historian. History obtained from or confirmed by: Friend and EMS Social Determinants Patient?s care significantly limited by Social Determinants of Health including: Problems related to primary support group Discharge Plan Discharge Clinical Impression: Alcohol intoxication, Dyspnea Additional Instructions: Your QT segment is not elevated, this could have been an EKG machine issue or something related to medications you were administered but your QT segment is back to normal on ECG, you presented feeling shortness of breath, chest pain your EKG has been reassuring, you had blood work without significant abnormalities, negative, checked her thyroid that was unremarkable your alcohol level was 286 which is quite elevated, you have had 3 other visits related to alcohol intoxication this year, if you feel that you need help with detoxing from alcohol please let us know, otherwise great job on your sobriety from opiates Prescriptions: No Action hydroxyzine pamoate 25 mg capsule 25 mg PO BID PRN (Reason: insomnia) sertraline 100 mg tablet 100 mg PO DAILY Print Language: Armenian
[2025-04-14 06:42] LABS: MANUAL DIFF FLAG NO
[2025-04-14 06:45] LABS: Hematocrit 40.4 % (37.0-47.0); Hemoglobin 13.2 g/dl (12.0-16.0); Imm Gran Abs Auto 0.04 X10*3/uL (0.00-0.03); Imm Gran Pct Auto 0.4 % (0.0-0.4); Lymphocytes Absolute Auto 3.9 X10*3/uL (1.2-4.9); Mean Corpuscular HGB Conc 32.7 g/dl (31.0-35.0); Mean Corpuscular Hemoglobin 26.8 pg (27.0-33.0); Mean Corpuscular Volume 82.1 fL (80.0-98.0); NRBC Abs Auto 0.000 X10*3/uL (0.0-0.012); NRBC Pct Auto 0.0 /100WBC (0.0-0.2); Platelet Count 353 X10*3/uL (160-400); Red Blood Count 4.92 X10*6/uL (4.20-5.50); White Blood Count 11.4 X10*3/uL (4.8-10.8)
[2025-04-14 07:10] LABS: Alanine Aminotransferase 37 U/L (0-31); Albumin Level 5.2 g/dL (3.5-5.0); Alkaline Phosphatase 95 U/L (39-117); Anion Gap 13 (12-20); Aspartate Amino Transferase 36 U/L (5-31); Blood Urea Nitrogen 7 mg/dL (9-16); Calcium 9.5 mg/dL (8.4-10.2); Carbon Dioxide 30 mmol/L (22-29); Chloride 107 mmol/L (96-108); Creatinine Clr Calc Pharmacy 123.7; Estimated Glomerular Filt Rate > 60; Potassium 3.9 mmol/L (3.3-5.1); Sodium 146 mmol/L (135-145); Total Protein 8.6 g/dL (6.5-8.0)
--- NOTE | 2025-04-14 07:41 | PC.NURSE ---
Assumed care of pt approx 0700, resting in stretcher with eyes closed. Resp even/unlabored, pt requested to be allowed to rest. IV valium ordered, hold for now per MD Ruiz.
[2025-04-14 08:38] VITALS: BP 104/70; PULSE 78; RESP 18; TEMP 36.2; O2SAT 100
[2025-04-14 10:06] VITALS: BP 104/70; PULSE 78; RESP 18; TEMP 36.2; O2SAT 100
== END 2025-04-14 10:08 | disposition home or self-care (01) ==
PROVIDERS: Emergency Provider Emergency Medicine; PCP Internal Medicine
DX: F10.129 Alcohol abuse with intoxication, unspecified (principal); Y90.8 Blood alcohol level of 240 mg/100 ml or more; R06.00 Dyspnea, unspecified
CPT/HCPCS: 36415; 80053; 80307; 84443; 84702; 85025; 93005; 99283; 99284

== ENCOUNTER → 2025-04-14 05:40 | Outpatient (BNV) | payer OTHER, SELFPAY | PROVIDERS: Emergency Provider Emergency Medicine; PCP Internal Medicine; Visit Provider Internal Medicine Cardiovascular Disease | DX: R00.0 Tachycardia, unspecified (principal) | CPT/HCPCS: 93010 ==